=== PATIENT | female | born 1965 | race Caucasian/White ===

== ENCOUNTER 2020-04-16 17:21 | Outpatient (CLI) | payer BC, SELFPAY ==
--- NOTE | ~2020-04-16 | MM_ITS ---
EXAMINATION: MM scrn raiza implant BI w eloy HISTORY: Screening mammogram TECHNIQUE: Craniocaudal and mediolateral oblique 3-D tomosynthesis images with implant displacement a nd synthetic 2-D images were generated. Craniocaudal and mediolateral oblique views of the breasts wi thout implant displacement were obtained using full field digital mammography. CAD analysis was submi tted and interpreted. COMPARISON: 08/15/2018, 06/24/2017, 06/16/2017 BREAST PARENCHYMAL COMPOSITION: There are scattered areas of fibroglandular density. FINDINGS: There is no evidence of suspicious mass, calcification, or architectural distortion to sugg est malignancy in either breast. There has been no suspicious interval change. IMPRESSION: 1. No mammographic evidence of malignancy. 2. Recommend routine screening mammography in one year. BI-RADS Category 1: Negative Reviewed, dictated and finalized at location A. 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
== END 2020-04-16 17:22 | disposition home or self-care (01) ==
PROVIDERS: Visit Provider Advanced Practice Midwife
DX: Z12.31 Encounter for screening mammogram for malignant neoplasm of breast (principal)
CPT/HCPCS: 77063; 77067

== ENCOUNTER 2020-11-18 11:46 | Emergency (ER) | payer BC, SELFPAY ==
--- NOTE | ~2020-11-18 | XR_ITS ---
XR knee RT min 4V 11/18/2020 12:05 INDICATION: Right knee pain PROCEDURE: 4 views right knee COMPARISON: No prior studies for comparison. FINDINGS: Fracture, dislocation or subluxation is not identified. There is a moderate joint effusion. No foreign bodies are identified. IMPRESSION: 1: No acute bone or joint abnormality. 2: Moderate joint effusion. Reviewed, dictated and finalized at location B.
[2020-11-18 11:54] VITALS: BP 123/77; PULSE 73; RESP 20; TEMP 36.6; O2SAT 100
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
[2020-11-18 14:54] VITALS: BP 127/85; PULSE 70; RESP 18; O2SAT 100
== END 2020-11-18 14:56 | disposition home or self-care (01) ==
PROVIDERS: Emergency Provider Emergency Medicine
DX: S89.91XA Unspecified injury of right lower leg, initial encounter (principal); M25.461 Effusion, right knee; V28.0XXA Motorcycle driver injured in noncollision transport accident in nontraffic accident, initial encounter
CPT/HCPCS: 73564; 99283

== ENCOUNTER 2020-11-29 16:53 | Outpatient (CLI) | payer BC, SELFPAY ==
--- NOTE | ~2020-11-29 | MR_ITS ---
EXAMINATION: MR knee RT wo con DATE: 11/29/2020 17:53 INDICATION: Right knee pain. TECHNIQUE: Magnetic resonance imaging (MRI) of the right knee was performed without intravenous contr ast. Sequences included axial PD-weighted FS FSE, coronal PD-weighted FSE and PD-weighted FS FSE, sag ittal PD-weighted FSE, and sagittal T2-weighted FS FSE. COMPARISON: Right knee radiograph 11/18/2020 FINDINGS: Medial compartment: Medial meniscus is normal. There is a subchondral fracture of medial aspect of tibial condyle with up to 1 mm depression, visible fracture line, and bone marrow edema. There is cartilage surface irregul arity of tibial condyle and femoral condyle. Lateral compartment: Lateral meniscus is normal. There is shallow partial-thickness cartilage loss of femoral condyle invo lving the medial articular surface. There is shallow partial-thickness cartilage loss of tibial condy le involving the central, medial, and posterior articular surface. Patellofemoral compartment: There is a partial-thickness cartilage loss of patellar lateral facet with mild subchondral edema-lik e marrow signal intensity. There is shallow partial-thickness cartilage loss of patellar medial facet . There is shallow partial-thickness cartilage loss of trochlea. Ligaments and tendons: The anterior and posterior cruciate ligaments are normal. Medial collateral ligament is intact. Edema around the medial collateral ligament is likely from the tibial condyle fracture. Lateral collateral ligament complex is normal. There is mild patellar tendinopathy. Fluid: There is a small knee joint effusion. There is mild superficial infrapatellar bursitis. IMPRESSION: 1. Subchondral fracture of medial aspect of medial tibial condyle. 2. Moderate chondrosis of patellofemoral compartment and mild chondrosis of medial and lateral compar tments. 3. Small knee joint effusion. Reviewed, dictated and finalized at location A. IMPRESSION: 1. Subchondral fracture of medial aspect of medial tibial condyle. 2. Moderate chondrosis of patellofemoral compartment and mild chondrosis of med ial and lateral compartments. 3. Small knee joint effusion.
== END 2020-11-29 16:54 | disposition home or self-care (01) ==
PROVIDERS: Visit Provider Orthopaedic Surgery
DX: M25.461 Effusion, right knee (principal); M70.51 Other bursitis of knee, right knee; S82.131A Displaced fracture of medial condyle of right tibia, initial encounter for closed fracture
CPT/HCPCS: 73721

== ENCOUNTER → 2021-05-09 09:00 | Outpatient (CLI) | payer BC, SELFPAY ==
--- NOTE | ~2021-05-09 | MMUS_ITS ---
EXAMINATION: MM diag raiza implant BI w eloy, US breast LT limited HISTORY: Breast pain. Palpable left breast abnormality. TECHNIQUE: Additional 3-D tomosynthesis images of the breasts were performed and synthetic 2-D images were generated. CAD analysis was submitted and interpreted. High resolution Limited left breast ultr asound was performed. COMPARISON: Comparison to multiple prior studies sequentially, with oldest reviewed study dated 09/11. BREAST PARENCHYMAL COMPOSITION: Breast composed of scattered areas of fibroglandular density. FINDINGS: MAMMOGRAPHIC FINDINGS: There are no suspicious masses, calcifications or architectural distortion in either breast to sugges t malignancy. There are bilateral subpectoral silicone implants. ULTRASOUND: Limited left breast ultrasound: Normal heterogeneous echotexture without focal mass. IMPRESSION: 1. No evidence for malignancy in either breast. 2. Routine yearly screening mammogram and regular clinical breast examination are recommended. BI-RADS Category 1: Negative Reviewed, dictated and finalized at location A. IVIST POLITICAL HISTORY IMPRESSION: 1. No evidence for malignancy in either breast. 2. Routine yearly screening mammogram and regular clinical breast examination a re recommended. BI-RADS Category 1: Negative
== END ==
PROVIDERS: Visit Provider Advanced Practice Midwife
DX: N64.4 Mastodynia (principal)
CPT/HCPCS: 76642; 77062; 77066; G0279

== ENCOUNTER → 2021-07-05 09:26 | Outpatient (CLI) | payer BC, SELFPAY ==
--- NOTE | ~2021-07-05 | DEXA_ITS ---
Bone Density Report Name: CHELLE MCGEE Age: 55 Sex: Female Ethnicity: White Date of : 1965 Indication: postmenopausal; screening for osteoporosis; height loss; prior fracture; hysterectomy; Referring Provider: Deysi Batista Study: Bone densitometry was performed. Exam Date: July 05, 2021 Accession number: [id number] Bone Density: Region BMD T-score Z-score Classification AP Spine (L1-L4) 0.836 -1.9 -0.8 Osteopenia Femoral Neck (Left) 0.604 -2.2 -1.1 Osteopenia Total Hip (Left) 0.733 -1.7 -1.0 Osteopenia Femoral Neck (Right) 0.573 -2.5 -1.4 Osteoporosis Total Hip (Right) 0.745 -1.6 -0.9 Osteopenia Total Hip Mean 0.739 -1.7 -1.0 Osteopenia World Health Organization criteria for BMD impression classify patients as: Normal (T-score at or above -1.0), Osteopenia (T-score between -1.0 and -2.5), or Osteoporosis (T-score at or below -2.5). 10-year Fracture Risk: FRAX not reported because: Some T-score for Spine Total or Hip Total or Femoral Neck at or below -2.5 Clinical Information Provided by Patient: Has had a low trauma fracture Has used the following medications: Vitamin D, Calcium Has the following medical conditions: Hysterectomy Patient maximum height was 65 Menopause Age: 33 No regular weight bearing exercise Does not regularly consume dairy products Drinks caffeinated beverages Onset of menses at age 13 Number of children 2 Impression: The patient has established osteoporosis, based on the Right Femoral Neck T-score and the existence of a prior fracture. The patient has risk factors, including: previous fracture. Discussion: HIGH RISK OF FRACTURE. BONE DENSITY IS UNDESIRABLY LOW AT ONE OR MORE SKELETAL SITES, CONSISTENT WITH POSTMENOPAUSAL OSTEOPOROSIS. This patient's lowest T-score, in a patient who has previously fractured, meets the World Health Organization's (WHO) criteria for severe osteoporosis. In untreated patients, the risk of osteoporotic fracture increases approximately two-fold for each 1.0 SD decrease in T-score. Low bone density is not the only risk factor for fracture; also consider factors such as patient's age, frailty or poor health, risk of falling, risk of injury, previous osteoporotic fracture, family history of osteoporosis, cigarette smoking, low body weight, etc. Not everyone with low bone mineral density has osteoporosis; osteomalacia and other metabolic bone disorders should also be considered. Patients who have osteoporosis should be evaluated for specific diseases and conditions (secondary causes) that may cause or contribute to bone loss. The [place] [employer]ocrinologists (AACE) and National Osteoporosis Foundation (NOF) recommend pharmacologic intervention for all postmenopausal women whose T-score is in this range. The patient should follow a he
== END ==
PROVIDERS: Visit Provider Advanced Practice Midwife
DX: Z78.0 Asymptomatic menopausal state (principal); M85.89 Other specified disorders of bone density and structure, multiple sites; M81.0 Age-related osteoporosis without current pathological fracture
CPT/HCPCS: 77080

== ENCOUNTER 2021-11-17 08:50 | Outpatient (CLI) | payer BC, SELFPAY ==
--- NOTE | 2021-11-24 18:21 | WPDHOMESLEEP ---
Sleep Study - Home Unattended Date of Study: 11/17/21 Ordering Provider: Bobby Mcintyre APRN Interpreting Provider: Chastity Camacho, DO Home Sleep Study Type: Apnea Link Air Height: 1.63 m Weight: 81.647 kg Body Mass Index: 30.9 Neck Circumference (inches): 13 [place]: 4 Reason for Sleep Study Snoring, Waking up with sore throat Sleep History The patient is a 56-year-old female that had a sleep study ordered by her primary care for evaluation of sleep apnea. The patient denies awakening from sleep short of breath. She occasionally awakens at night with heartburn, belching or cough. She constantly snores loud enough that others complain. She occasionally has trouble sleeping when she has a cold. She denies waking up gasping for air throughout the night. She denies having breathing problems at night observed by herself or others. She rarely sweats excessively at night. She denies having heart palpitations or irregular heartbeats during the night. He rarely falls asleep during the day but never while driving. She denies sleep paralysis and cataplexy. He occasionally has trouble at school or work due to sleepiness. She occasionally experiences vivid dreamlike scenes upon awakening or falling asleep. She denies feeling afraid of going to sleep. She occasionally has nightmares. She occasionally remembers her dreams. She frequently has thoughts racing through her mind. She occasionally feels sad or depressed. She occasionally has anxiety. She rarely has muscular tension. She occasionally notices parts of her body jerk. She rarely kicks during the night. She occasionally has crawling and aching feelings in her legs and occasionally has leg pain during the night. She denies grinding teeth during sleep and awakening with morning jaw pain. She is rarely bothered by pain during the day and occasionally awakened by pain during the night. She frequently wakes up feeling stiff in the morning. She occasionally wakes up with sore achy muscles. She occasionally wakes up with pain in the neck, spine or joints. She goes to bed between 8-9 p.m. on weekdays and between 9-10 p.m. on the weekends. It takes her 15 minutes to fall asleep. She wakes up 3-4 times per night to get a drink of water and use the restroom. She is able to fall back asleep immediately. She will between 5-6 a.m. on the weekdays and between 6-7 a.m. on the weekends. She typically gets 7-8 hours of sleep per night. She will stay in bed for 30 minutes after waking up in the morning. She is currently living with her . She does not consume any caffeinated beverages within 2 hours of bedtime. She does not engage in physical exercise before bedtime. She will read watch television before falling asleep. She does not take naps in the afternoon or the evening. The patient drinks 2 caffeinated beverages per day. She will drink 1 alcoholic beverage per day. She denies tobacco use and recreational drug use. [facility] Past Medical History Medical History History of UTI Right knee pain Surgical History Surgical History History of abdominoplasty On demo sheet the pt. stated mommy makeover no other details about what was done History of partial hysterectomy Family History Family History Other Breast cancer Lung cancer Social History Social History Social History: Patient drinks 1-2 cups of caffeine daily. Smoking status: Never smoker Second hand tobacco smoke exposure: No Alcohol intake: current Alcohol use details: Patient drinks socially. 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
[2021-11-24 18:29] VITALS: BMI 30.9
--- NOTE | 2022-01-03 21:33 | WPDSLEEPSTUD ---
Sleep Study Date of Study: 12/10/2021 Ordering Provider: Bobby Mcintyre APRN Interpreting Physician: Caitlin Sylvester MD Sleep Study Type: CPAP Titration Height: 1.63 m Weight: 81.647 kg Body Mass Index: 30.9 Neck Circumference (inches): 13 [place]: 4 Reason for Sleep Study * 11/17/2021 home sleep test with AHI 49.8 with desaturation to 82% and central sleep apnea index 7.9. She presents for a PAP titration. * 12/19/2021 echo shows EF 65-70% Sleep History Mary Lou Almonte is a 56-year-old female that had a home sleep test in October that showed severe obstructive sleep apnea.?The patient denies awakening from sleep short of breath.? She occasionally awakens at night with heartburn, belching or cough.? She constantly snores loud enough that others complain.? She occasionally has trouble sleeping when she has a cold.? She denies waking up gasping for air throughout the night.? She denies having breathing problems at night observed by herself or others.? She rarely sweats excessively at night.? She denies having heart palpitations or irregular heartbeats during the night.? He rarely falls asleep during the day but never while driving.? She denies sleep paralysis and cataplexy.? He occasionally has trouble at school or work due to sleepiness.? She occasionally experiences vivid dreamlike scenes upon awakening or falling asleep.? She denies feeling afraid of going to sleep.? She occasionally has nightmares.? She occasionally remembers her dreams.? She frequently has thoughts racing through her mind.? She occasionally feels sad or depressed.? She occasionally has anxiety.? She rarely has muscular tension.? She occasionally notices parts of her body jerk.? She rarely kicks during the night.? She occasionally has crawling and aching feelings in her legs and occasionally has leg pain during the night.? She denies grinding teeth during sleep and awakening with morning jaw pain.? She is rarely bothered by pain during the day and occasionally awakened by pain during the night.? She frequently wakes up feeling stiff in the morning.? She occasionally wakes up with sore achy muscles.? She occasionally wakes up with pain in the neck, spine or joints.? She goes to bed between 8-9 p.m. on weekdays and between 9-10 p.m. on the weekends.? It takes her 15 minutes to fall asleep.? She wakes up 3-4 times per night to get a drink of water and use the restroom.? She is able to fall back asleep immediately.? She will between 5-6 a.m. on the weekdays and between 6-7 a.m. on the weekends.? She typically gets 7-8 hours of sleep per night.? She will stay in bed for 30 minutes after waking up in the morning.? She is currently living with her .? She does not consume any caffeinated beverages within 2 hours of bedtime.? She does not engage in physical exercise before bedtime.? She will read watch television before falling asleep.? She does not take naps in the afternoon or the evening. The patient drinks 2 caffeinated beverages per day.? She will drink 1 alcoholic beverage per day.? She denies tobacco use and recreational drug use. [facility] Past Medical History Medical History (Updated 01/03/22 @ 22:43 by Caitlin Syvlester MD) History of UTI EDITH (obstructive sleep apnea) Right knee pain Surgical History Surgical History History of abdominoplasty On demo sheet the pt. stated rony lu no other details about what was done History of partial hysterectomy Family History Family History Other Breast cancer Lung cancer Social History Social History Social History: Patient drinks 1-2 cups of caffeine daily. Smoking status: Never smoker Second hand tobacco smoke exposure: No Alcohol intake: current Alcohol use details: Patient drinks socially. Substance use: never Substance use type: does no
== END 2021-11-18 13:10 | disposition home or self-care (01) ==
LOC: ANHCSM 08:53
PROVIDERS: PCP Emergency Medicine; Visit Provider Nurse Practitioner Family
DX: G47.33 Obstructive sleep apnea (adult) (pediatric) (principal); R06.83 Snoring; G47.9 Sleep disorder, unspecified
CPT/HCPCS: 95806

== ENCOUNTER 2021-12-10 08:28 | Outpatient (CLI) | payer BC, SELFPAY ==
--- NOTE | 2022-01-03 21:35 | SLEEP_ITS ---
This report was moved to the correct visit, [id number] on 01/07/2022. Original report was signed by Caitlin Sylvester MD on 01/03/22 0257. Sleep Study Date of Study: 12/10/2021 Ordering Provider: Bobby Mcintyre APRN Interpreting Physician: Caitlin Sylvester MD Sleep Study Type: CPAP Titration Height: 1.63 m Weight: 81.647 kg Body Mass Index: 30.9 Neck Circumference (inches): 13 Doyle: 4 Reason for Sleep Study * 11/17/2021 home sleep test with AHI 49.8 with desaturation to 82% and central sleep apnea index 7.9. She presents for a PAP titration. * 12/19/2021 echo shows EF 65-70% Sleep History Mary Lou Almonte is a 56-year-old female that had a home sleep test in October that showed severe obstructive sleep apnea.?The patient denies awakening from sleep short of breath.? She occasionally awakens at night with heartburn, belching or cough.? She constantly snores loud enough that others complain.? She occasionally has trouble sleeping when she has a cold.? She denies waking up gasping for air throughout the night.? She denies having breathing problems at night observed by herself or others.? She rarely sweats excessively at night.? She denies having heart palpitations or irregular heartbeats during the night.? He rarely falls asleep during the day but never while driving.? She denies sleep paralysis and cataplexy.? He occasionally has trouble at school or work due to sleepiness.? She occasionally experiences vivid dreamlike scenes upon awakening or falling asleep.? She denies feeling afraid of going to sleep.? She occasionally has nightmares.? She occasionally remembers her dreams.? She frequently has thoughts racing through her mind.? She occasionally feels sad or depressed.? She occasionally has anxiety.? She rarely has muscular tension.? She occasionally notices parts of her body jerk.? She rarely kicks during the night.? She occasionally has crawling and aching feelings in her legs and occasionally has leg pain during the night.? She denies grinding teeth during sleep and awakening with morning jaw pain.? She is rarely bothered by pain during the day and occasionally awakened by pain during the night.? She frequently wakes up feeling stiff in the morning.? She occasionally wakes up with sore achy muscles.? She occasionally wakes up with pain in the neck, spine or joints.? She goes to bed between 8-9 p.m. on weekdays and between 9-10 p.m. on the weekends.? It takes her 15 minutes to fall asleep.? She wakes up 3-4 times per night to get a drink of water and use the restroom.? She is able to fall back asleep immediately.? She will between 5-6 a.m. on the weekdays and between 6-7 a.m. on the weekends.? She typically gets 7-8 hours of sleep per night.? She will stay in bed for 30 minutes after waking up in the morning.? She is currently living with her .? She does not consume any caffeinated beverages within 2 hours of bedtime.? She does not engage in physical exercise before bedtime.? She will read watch television before falling asleep.? She does not take naps in the afternoon or the evening. The patient drinks 2 caffeinated beverages per day.? She will drink 1 alcoholic beverage per day.? She denies tobacco use and recreational drug use. [facility] Past Medical History Medical History (Updated 01/03/22 @ 22:43 by Caitlin Sylvester MD) History of UTI EDITH (obstructive sleep apnea) Right knee pain Surgical History Surgical History History of abdominoplasty On demo sheet the pt. stated mommy makeover no other details about what was done History of partial hysterectomy Family History Family History Other Breast cancer Lung cancer Social History Social History (Review
== END 2021-12-11 06:22 | disposition home or self-care (01) ==
LOC: ANHCSM 08:31
PROVIDERS: PCP Emergency Medicine; Visit Provider Nurse Practitioner Family
DX: G47.33 Obstructive sleep apnea (adult) (pediatric) (principal)
CPT/HCPCS: 95811

== ENCOUNTER 2021-12-19 13:41 | Outpatient (CLI) | payer BC, SELFPAY ==
--- NOTE | 2021-12-19 13:48 | ECHO_ITS ---
Patient Info Name: Mary Lou Almonte Age: 56 years : 1965 Gender: Female Ht: 64 in Wt: 180 lbs BSA: 1.95 m2 HR: 71 bpm BP: 114 / 76 mmHg Heart Rhythm: Sinus Rhythm Technical Quality: Fair Exam Date: 12/19/2021 2:06 PM Exam Location: [facility] Patient Status: Outpatient Admit Date: 12/19/2021 Staff Ordering Physician: Bobby Mcintyre APRN Weaving Teacher: Maida Howell RDCS Attending Provider: Bobby Mcintyre APRN Referring Physician: Francisco Javier ADAMS; Exam Type: CA echo doppler color flow Study Info Indications - Primary central sleep apnea Complete two-dimensional, color flow and Doppler transthoracic echocardiogram is performed. Summary 1. Complete two-dimensional, color flow and Doppler transthoracic echocardiogram is performed. 2. Left ventricular chamber dimension is normal. 3. Left ventricular systolic function is normal, estimated at 65-70%. 4. The left ventricular diastolic function is normal. 5. E/e' 8 is minimally elevated. 6. There is trace mitral valve regurgitation. 7. There is trace tricuspid valve regurgitation. 8. No pulmonary hypertension, estimated pulmonary arterial systolic pressure is 19 mmHg. Left Ventricle E/e' 8 is minimally elevated. Left ventricular chamber dimension is normal. Left ventricular systolic function is normal, estimated at 65-70%. The left ventricular diastolic function is normal. Right Ventricle Right ventricular chamber dimension is normal. Right ventricular systolic function is normal. Left Atria Left atrial chamber dimension is normal. Right Atria Right atrial chamber dimension is normal. Aortic Valve The aortic valve is trileaflet. There is no aortic valve stenosis. There is no aortic valve regurgitation. Pulmonic Valve There is no pulmonic regurgitation. Mitral Valve There is no mitral valve stenosis. There is trace mitral valve regurgitation. Tricuspid Valve There is trace tricuspid valve regurgitation. No pulmonary hypertension, estimated pulmonary arterial systolic pressure is 19 mmHg. Pericardium/Pleural There is no pericardial effusion. Inferior Vena Cava Normal inferior vena cava with >50% collapse upon inspiration consistent with normal right atrial pressure, 5 mmHg. Aorta The aortic root size at the sinus of Valsalva is normal. Left Ventricular Outflow Tract Name Value Normal LVOT 2D LVOT Diameter 2.0 cm LVOT Doppler LVOT Peak Gradient 6 mmHg LVOT Mean Gradient 3 mmHg LVOT VTI 22 cm LVOT VTI/AV VTI Ratio 0.8 LVOT Stroke Volume 65 ml LVOT CO 4.2 l/min LVOT CI 2.1 l/min/m2 Pulmonic Valve Name Value Normal RVOT Doppler RVO
== END 2021-12-19 13:42 | disposition home or self-care (01) ==
PROVIDERS: PCP Emergency Medicine; Visit Provider Nurse Practitioner Family
DX: G47.31 Primary central sleep apnea (principal)
CPT/HCPCS: 93306

== ENCOUNTER → 2023-05-17 16:04 | Outpatient (CLI) | payer BC, SELFPAY ==
--- NOTE | ~2023-05-17 | MM_ITS ---
EXAMINATION: MM scrn raiza implant BI w eloy HISTORY: Screening mammogram TECHNIQUE: Craniocaudal and mediolateral oblique 3-D tomosynthesis images with implant displacement a nd synthetic 2-D images were generated. Craniocaudal and mediolateral oblique views of the breasts wi thout implant displacement were obtained using full field digital mammography. CAD analysis was submi tted and interpreted. COMPARISON: 05/09/2021 diagnostic bilateral implant mammogram and limited left breast ultrasound exam ination 04/16/2020 and 08/05/2018 bilateral implant screening mammogram examinations BREAST PARENCHYMAL COMPOSITION: There are scattered areas of fibroglandular density. FINDINGS: Status post bilateral augmentation mammoplasty. There is no evidence of suspicious mass, ca lcification, or architectural distortion to suggest malignancy in either breast. There has been no cornejo spicious interval change. IMPRESSION: 1. No mammographic evidence of malignancy. 2. Recommend routine screening mammography in one year. BI-RADS Category 1: Negative Reviewed, dictated and finalized at location A. [facility]
== END ==
PROVIDERS: PCP Advanced Practice Midwife; Visit Provider Advanced Practice Midwife
DX: Z12.31 Encounter for screening mammogram for malignant neoplasm of breast (principal)
CPT/HCPCS: 77063; 77067

== ENCOUNTER → 2023-07-26 12:20 | Outpatient (CLI) | payer BC, SELFPAY ==
--- NOTE | ~2023-07-26 | DEXA_ITS ---
Bone Density Report Name: CHELLE MCGEE Age: 57 Sex: Female Ethnicity: White Date of : 1965 Indication: osteopenia; prior fracture; hysterectomy; postmenopausal Referring Provider: Deysi Batista Study: Bone densitometry was performed. Exam Date: July 26, 2023 Accession number: [id number] Bone Density: Region BMD T-score Z-score Classification AP Spine (L1-L4) 0.817 -2.1 -0.8 Osteopenia Femoral Neck (Left) 0.578 -2.4 -1.3 Osteopenia Total Hip (Left) 0.715 -1.9 -1.0 Osteopenia Femoral Neck (Right) 0.584 -2.4 -1.2 Osteopenia Total Hip (Right) 0.726 -1.8 -0.9 Osteopenia Total Hip Mean 0.721 -1.9 -1.0 Osteopenia World Health Organization criteria for BMD impression classify patients as: Normal (T-score at or above -1.0), Osteopenia (T-score between -1.0 and -2.5), or Osteoporosis (T-score at or below -2.5). 10-year Fracture Risk(1): Major Osteoporotic Fracture 16% Hip Fracture 2.7% Reported Risk Factors: [place] (), Neck BMD=0.584, BMI=32.3, previous fracture (1) FRAX(R) Version 3.08. Fracture probability calculated for an untreated patient. Fracture probability may be lower if the patient has received treatment. Previous Exams: Region Exam Age BMD T-score BMD Change BMD Change Date g/cm2 vs Baseline vs Previous AP Spine(L1-L4) 07/26/2023 57 0.817 -2.1 -0.019 -0.019 07/05/2021 55 0.836 -1.9 Total Hip(Left) 07/26/2023 57 0.715 -1.9 -0.017 -0.017 07/05/2021 55 0.733 -1.7 Total Hip(Right) 07/26/2023 57 0.726 -1.8 -0.019 -0.019 07/05/2021 55 0.745 -1.6 *Denotes significance at 95% confidence level, LSC for AP Spine = 0.022 g/cm2, LSC for Total Hip = 0.027 g/cm2 Clinical Information Provided by Patient: Has had a low trauma fracture Has used the following medications: Vitamin D, Calcium Has the following medical conditions: Hysterectomy Patient maximum height was 65 Menopause Age: 33 No regular weight bearing exercise Drinks caffeinated beverages Onset of menses at age 13 Number of children 2 Impression: The patient has low bone mass, based on the Left Femoral Neck T-score. The patient has an estimated ten-year risk of hip fracture of 2.7% and an estimated ten-year risk of major fracture of 16%, based on the WHO FRAX algorithm. The patient has risk factors, including: previous fracture. No significant bone loss was observed. Discussion: BONE DENSI
== END ==
PROVIDERS: PCP Advanced Practice Midwife; Visit Provider Advanced Practice Midwife
DX: Z13.820 Encounter for screening for osteoporosis (principal); Z78.0 Asymptomatic menopausal state; M85.88 Other specified disorders of bone density and structure, other site; M85.852 Other specified disorders of bone density and structure, left thigh; M85.851 Other specified disorders of bone density and structure, right thigh
CPT/HCPCS: 77080

== ENCOUNTER 2023-08-04 09:52 | Outpatient (CLI) | payer BC, SELFPAY ==
--- NOTE | ~2023-08-04 | XR_ITS ---
Left ankle Technique: AP and lateral views were obtained. Clinical History: Left Findings: No acute fracture or dislocation is seen. Osseous alignment is anatomic. Ankle mortise and other visualized joint spaces are preserved. Soft tissues are otherwise unremarkable. Impression: Unremarkable left ankle. Reviewed, dictated and finalized at location . RESS STRIPPER Impression: Unremarkable left ankle.
--- NOTE | ~2023-08-04 | XR_ITS ---
Left foot Technique: AP and lateral views were obtained. Clinical History: Pain Findings: No acute fracture or dislocation is seen. Osseous alignment is anatomic. Joint spaces are p reserved without erosive or degenerative change. Soft tissues are unremarkable. Impression: Unremarkable left foot radiographs. Reviewed, dictated and finalized at [facility]. [facility]REMAN Impression: Unremarkable left foot radiographs.
== END 2023-08-04 09:53 ==
PROVIDERS: PCP Advanced Practice Midwife; Visit Provider Emergency Medicine
DX: M79.672 Pain in left foot (principal); M25.572 Pain in left ankle and joints of left foot
CPT/HCPCS: 73600; 73620

== ENCOUNTER 2023-08-23 13:49 | Outpatient (CLI) | payer BC, SELFPAY ==
--- NOTE | ~2023-08-23 | MR_ITS ---
EXAMINATION: MR ankle LT wo con DATE: 08/23/2023 14:29 INDICATION: Posterior tibial tendinitis TECHNIQUE: Magnetic resonance imaging (MRI) of the left ankle was performed without intravenous contr ast. Sequences included sagittal, coronal, and axial proton-density weighted fast spin echo without a nd with fat saturation. COMPARISON: Radiographs dated 08/03/2023 FINDINGS: Medial ankle ligaments: There is loss of the normally sharply defined striated pattern of the deep deltoid ligament as well a s thickening of the superficial deltoid ligament and superomedial component of the spring ligament co mplex without significant surrounding soft tissue edema consistent with scarring related to chronic s prains. The medial plantar oblique and infra plantar lateral components of the spring ligament comple x are normal. Lateral ankle ligaments: The anterior and posterior inferior tibiofibular ligaments are normal. The anterior talofibular, calc aneofibular and posterior talofibular ligaments are normal. Tendons: Achilles tendon is normal. Small amount of fluid extending along the peroneal tendon sheath consisten t with tenosynovitis. The peroneus longus and brevis tendons appear normal. The tibialis anterior and extensor hallucis longus and extensor digitorum longus tendons are normal. The flexor digitorum long us and flexor hallucis longus tendons are normal. There is more prominent increased fluid extending a long the tibialis posterior tendon sheath with moderate tendinopathy with both longitudinal split tea ring at the level of the distal tibia and mild partial-thickness tear at the distal myotendinous junc tion. Plantar fascia: Small plantar calcaneal spur and mild thickening and mild increased signal at the origin of the centr al component of the plantar aponeurosis consistent with chronic mild enthesopathy. No associated delano ow or surrounding soft tissue edema to suggest acute plantar fasciitis. Bones/other: Bone alignment is normal. Normal bone marrow signal throughout. No fracture or pathologic marrow repl acing process. Minimal to mild polyarticular osteoarthritis at the left ankle and several joints in t he mid and hindfoot. The Lisfranc ligament complex is normal. Fluid: Minimal joint effusions. The recess of the ankle, talonavicular and calcaneocuboid articulations. The re is also mild diffuse subcutaneous edema about the ankle. IMPRESSION: 1. Tibialis posterior tenosynovitis with moderate tendinopathy and both longitudinal split tearing an d mild partial-thickness tear at the distal myotendinous junction. 2. Mild peroneal tenosynovitis with normal appearing tendons. 3. Scarring consistent with chronic sprains of the medial stabilizing ligaments of the ankle. Reviewed, dictated and finalized at location A. IMPRESSION: 1. Tibialis posterior tenosynovitis with moderate tendinopathy and both longitu dinal split tearing and mild partial-thickness tear at the distal myotendinous junction. 2. Mild peroneal tenosynovitis with normal appearing tendons. 3. Scarring consistent with chronic sprains of the medial stabilizing ligaments of the ankle.
== END 2023-08-23 13:50 ==
LOC: MICIMG 13:50
PROVIDERS: PCP Emergency Medicine; Visit Provider Podiatrist Foot & Ankle Surgery
DX: M76.822 Posterior tibial tendinitis, left leg (principal)
CPT/HCPCS: 73721

== ENCOUNTER 2024-03-10 03:18 | Day surgery (SDC) | payer BC, SELFPAY ==
[2024-02-29 15:14] VITALS: BMI 33.3
--- NOTE | 2024-02-29 15:33 | PC.NURSE ---
Report to the Outpatient Waiting Room, entrance under the green pavilion located off [facility], at 0600 on 03-10-24. Planned Procedure Time: 0730.? Time changes happen often and if your time is changed the preop area will call you the afternoon before. - You and your visitor will be asked to self-screen and do not enter if you have any COVID symptoms. Please call surgeon if you need to reschedule. - A mask is optional within the hospital at this time. Patients may have clear liquids (water, carbonated beverages, clear teas, apple juice) until 3 hours prior to surgery with a maximum of 20 ounces. 0430 - No food from midnight until time of surgery and no smoking - Infants may have breast milk until 4 hours before surgery, formula 6 hours prior to surgery. - Children will be allowed to drink immediately following surgery.? If applicable, please bring a bottle or sippy cup to assist with drinking. Juice, water, soda, and popsicles are readily available.? For infants on formula, please bring formula the day of surgery.? Pacifiers are allowed. Take only the following medications with a SIP of water on the morning of surgery: None DO NOT STOP ANY OF YOUR OTHER PRESCRIPTION MEDICATIONS PRIOR TO SURGERY EXCEPT THE FOLLOWING Medications to discontinue per physician: vitamins and supplements Date to take last dose: 03-07-24 Please no make-up, nail spanish, hairspray, perfume, deodorant, or body powder the day of surgery.? No jewelry (including any body piercings) or valuables the day of surgery, leave them at home.? Please take a shower or bath the night before, or the morning of, surgery with an antibacterial soap.? Wear comfortable, loose fitting clothing.? Children are encouraged to wear pajamas. - Jewelry must be removed prior to entering the operating room.? Rings and piercings that are not removed may be cut off. - The hospital will not accept responsibility for valuables.? - Please leave all valuables, including medications, at home the day of surgery. If you are going home after surgery, a licensed drivers' cash clerk must drive you home.? - NO public transportation without another adult if you receive anesthesia. - We recommend that an adult stay with you for 24 hours following discharge. - We also recommend that you do not drive, make important decision, drink alcoholic beverages, or take any drugs that were not prescribed by your health care provider for at least 24 hours after your discharge time. For Pediatric surgeries, we recommend two adults accompany the child home. Follow any additional instructions given to you from your surgeon. Telephone instructions given to Mary Lou Almonte and asked if any additional questions and then verbalized understanding. Patient advised to call surgeon office or pre surgery nurse liaison [phone] if any additional questions.
[2024-03-10] VITALS (8 sets, daily range): BP systolic 96–128; BP diastolic 54–74; PULSE 63–96; RESP 12–18; TEMP 36.8; O2SAT 97–100
--- NOTE | ~2024-03-10 | XR_ITS ---
INTRAOPERATIVE FLUOROSCOPY: CLINICAL HISTORY: 58 years old Female; LEFT FOOT PROCEDURE COMMENTS: Limited intraoperative fluoroscopy of the left foot was performed. DOSE AREA PRODUCT: 15.6 cGy-cm2 FLUOROSCOPY TIME: 119 seconds FINDINGS/IMPRESSION: Please refer to operative note for further details. Reviewed, dictated and finalized at location A.
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
--- NOTE | 2024-03-10 07:14 | WPDANESPNB ---
Anes - Peripheral Nerve Block Date/Time: 03/10/24 07:14 I have discussed with the patient/family/POA the placement of a peripheral nerve block for post-operative pain management, including associated risks, benefits, complications, and side effects. Alternative methods of post-operative analgesia were detailed. Questions were solicited and answers provided to the satisfaction of the patient/family/POA. Time-Out: A pre-procedural Time-Out was completed immediately before starting the procedure and confirmed: Patient Identification, Site, Procedure, Patient Position and the Availability of Requisite Equipment. Clinical Indications: Acute post-operative pain management requested by the operative surgeon. Nerve Block Insertion Note Anes-nerve block: posterior fossa sciatic left and adductor canal left Patient position: supine (for adductor canal) and other (right lateral for popliteal) Skin prep: chlorhexidine Needle: 22 gauge, stimulating, insulated echogenic needle. Needle length: 80 mm Technique: nerve stimulation lost at (mA) (for popliteal lost at 0.2) and ultrasound Injectate: bupivacaine 0.5% with epi 5 mcg/ml (20 mL for popliteal, 10 mL for adductor canal (no epi)) Observations: tolerated well Complications: none Procedure start time:: 722 Procedure end time:: 728
[2024-03-10] MEDS: LACTATED RINGERS 1,000 ML 30 ML IV CONT ×2 (07:19→09:58)
--- NOTE | 2024-03-10 07:20 | WPDHPUPDATE1 ---
History and Physical Update Update Date/Time: 03/10/24 07:20 History and Physical has been reviewed, including an updated exam of the patient. There are NO changes in the patient's condition. Risks, benefits, and alternatives have been discussed and questions answered. Patient agrees to proceed with procedure.
[2024-03-10] MEDS: ceFAZolin 2 GM/D5W 50 ML 2 GM/50 ML BAG IVPB (07:34)
--- NOTE | 2024-03-10 09:47 | W.PM.PROC2 ---
Procedure Note - Detailed Date of Procedure 03/10/24 Pre-op Diagnosis 1. 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 Gastroc soleal equinus 3.Posterior tibial tendinopaty Post-op Diagnosis Same Procedure Performed 1. Tendo Achilles Lengthening left leg 2. Clark Anterior Calcaneal osteotomy left foot 3. Cotton medial cuneiform osteotomy left foot 4. Posterior tibial tendon debridement with tenosynovitis left foot Surgeon Mark El Jr., DPM Anesthesia General and Regional Indications Painful medial hindfoot with a collapsing pes planovalgus deformity Findings No split tearing to the posterior tibial tendon significant yellow synovial fluid with minimal thickening and tendinopathy Description of Procedure PROCEDURE IN DETAIL: Under mild sedation, the patient was brought into the operating room and placed on the operating table in the supine position. A pneumatic thigh tourniquet was placed about the patient's thigh. Following general anesthesia and a previous popliteal fossa block, the foot and ankle was then scrubbed, prepped, and draped in the usual aseptic manner. An Esmarch bandage was then used to exsanguinate the patient's foot and ankle and the pneumatic thigh tourniquet was then inflated to 300 mmHg. First, I elevated the right leg and made 3 separate incisions, each 1cm and by 1cm, starting 4 cm above the level of the superior calcaneus. I made a vertical stab incision into the Achilles tendon and rotated the blade making a shira section each time, noting a overall improvement as far as dorsiflexion of the ankle joint with the knee extended. I closed the skin incisions with 4-0 Prolene in simple interrupted suture fashion technique. Attention was directed to the lateral aspect of the hindfoot. An incision was made starting just distal to the lateral malleolus and extending towards the base of the calcaneal cuboid joint. The extensor digitorum brevis muscle was detached partially from its origin to expose the calcaneal cuboid joint and distal lateral aspect of the anterior calcaneus. The peroneal tendons were carefully retracted inferiorly. The periosteal tissue was dissected approximately 1.5cm proximal to the calcaneal cuboid joint. At this point a sagittal saw blade was used to make an osteotomy parallel with the calcaneal joint however 1.5cm proximal to the joint, the medial cortical hinge was preserved. Two Sotero pins were placed proximal and distal to the osteotomy site and the osteotomy was opened until the talar head was fully covered by the navicular, noted under fluoroscopy. A 20mm by 20mm by 10mm Arthrex BioSync Wedge was tamped into the osteotomy and fixated with a 2.4mm Locking Screw. The distractor was removed and transverse plane deformity of the patients flat foot well reduced. Next, I directed my attention to the central aspect of the medial cuneiform where a 3cm incision was made overlying the dorsal aspect. I dissected with deep down to the periosteal tissue with blunt and sharp dissection. I reflected the periosteum with a 15 blade both medially and laterally, I Made a perpendicular osteotomy along the central aspect of the cuneiform. Next two Sotero pins were placed proximal and distal to the osteotomy site and the osteotomy was distracted. I tamped in an Arthrex BioSync Cotton wedge 20mm x7.5mm. This procedure helped to plantarflex the first ray. Attention was directed to the medial aspect of the hindfoot and ankle a curvilinear incision was made proximal to the medial malleolus extending to the navicular tuberosity. I cauterized all bleeders. I incised the posterior tendon sheath No split tearing to the posterior tibial tendon, significant yellow synovial fluid with minimal thickening and tendinopathy. I excised the tenosynovitis this was discarded, I reaproximated the tendon with 4.0 Prolene in order to tubularize it post debriment. I flushed the area with copous amounts of costa
== END 2024-03-10 11:28 | disposition home or self-care (01) ==
PROVIDERS: PCP Emergency Medicine; Visit Provider Podiatrist Foot & Ankle Surgery
PROC: (CPT 28750; principal; 2024-03-10 07:30)
PROC: (CPT 27650; 2024-03-10 07:30)
DX: M76.822 Posterior tibial tendinitis, left leg (principal); M21.42 Flat foot [pes planus] (acquired), left foot; M25.375 Other instability, left foot; M21.6X2 Other acquired deformities of left foot; G89.18 Other acute postprocedural pain; G47.33 Obstructive sleep apnea (adult) (pediatric); E66.9 Obesity, unspecified; Z68.34 Body mass index [BMI] 34.0-34.9, adult
CPT/HCPCS: 27685; 28300; 28304; 64447; 64445; 99199; C1769; J0690; J1100; J2003; J2250; J2405; J2704; J3010; J7120

== ENCOUNTER 2024-07-10 15:05 | Outpatient (CLI) | payer BC, SELFPAY ==
--- NOTE | ~2024-07-10 | MM_ITS ---
EXAMINATION: MM scrn raiza implant BI w eloy HISTORY: Screening mammogram TECHNIQUE: Craniocaudal and mediolateral oblique 3-D tomosynthesis images with implant displacement a nd synthetic 2-D images were generated. Craniocaudal and mediolateral oblique views of the breasts wi thout implant displacement were obtained using full field digital mammography. CAD analysis was submi tted and interpreted. COMPARISON: Comparison to multiple prior studies sequentially, with oldest reviewed study dated 06/16. BREAST PARENCHYMAL COMPOSITION: Not dense: There are scattered areas of fibroglandular density. FINDINGS: There are bilateral subpectoral breast implants. There is no evidence of suspicious mass, c alcification, or architectural distortion to suggest malignancy in either breast. There has been no s uspicious interval change. IMPRESSION: 1. No mammographic evidence of malignancy. 2. Recommend routine screening mammography in one year. BI-RADS Category 1: Negative Reviewed, dictated and finalized at location B. [employer] ARCHITECT
== END 2024-07-10 15:06 | disposition home or self-care (01) ==
LOC: MICIMG 15:06
PROVIDERS: PCP Advanced Practice Midwife; Visit Provider Advanced Practice Midwife
DX: Z12.31 Encounter for screening mammogram for malignant neoplasm of breast (principal); Z98.82 Breast implant status
CPT/HCPCS: 77063; 77067

== ENCOUNTER 2024-12-18 12:21 | Emergency (ER) | payer BC, SELFPAY ==
--- NOTE | ~2024-12-18 | XR_ITS ---
EXAM/PROCEDURE: XR ribs LT 2V w CXR 2V - 12/18/2024 12:45 CDT HISTORY: 59 years old Female with left upper rib/chest wall pain- injury TECHNIQUE: Two view(s) of the chest. COMPARISON: None available. FINDINGS: LUNGS/ PLEURA: No focal consolidation. No appreciable pneumothorax or large pleural effusion. HEART/ MEDIASTINUM: Heart appears normal in size. BONES: No acute osseous abnormality. OTHER: Visualized upper abdomen is unremarkable. IMPRESSION: No acute process. Reviewed, dictated and finalized at location A. IMPRESSION: No acute process.
[2024-12-18 12:33] VITALS: BP 136/86; PULSE 83; RESP 20; TEMP 37.2; O2SAT 100
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
[2024-12-18] MEDS: TETANUS,DIPHTHERIA,AC PERTUSSIS ADULT (0.5 ML) BOOSTRIX IM (13:38)
== END 2024-12-18 13:55 | disposition home or self-care (01) ==
PROVIDERS: Emergency Provider Nurse Practitioner Family; PCP Emergency Medicine
DX: S29.011A Strain of muscle and tendon of front wall of thorax, initial encounter (principal); S21.102A Unspecified open wound of left front wall of thorax without penetration into thoracic cavity, initial encounter; X50.9XXA Other and unspecified overexertion or strenuous movements or postures, initial encounter; Z23 Encounter for immunization; Z90.711 Acquired absence of uterus with remaining cervical stump
CPT/HCPCS: 71046; 71100; 90471; 90715; 99213; G0463